=== PATIENT | female | born 1935 | race Caucasian/White ===

== ENCOUNTER 2018-03-11 12:10 | Inpatient (IN) | payer MEDICARE, BC ==
[2018-03-11] MEDS ORDERED: Ibuprofen 200 MG TAB PO PRN (16:07)
[2018-03-11] MEDS: Ferrous Sulfate 325 MG TAB PO SCH (17:23)
[2018-03-11] MEDS: HYDROcodone/Acetaminophen 5/325 mg Tablet PO PRN (17:24)
[2018-03-11] MEDS: Senokot 8.6 MG TAB PO SCH (22:35)
[2018-03-11] MEDS: Ascorbic Acid 500 mg Chewable Tablet PO SCH (22:35)
[2018-03-11] MEDS: RANITIDINE 150 MG PO SCH (22:35)
[2018-03-11] MEDS: traMADol HCl 50 MG TAB PO PRN (22:35)
[2018-03-12 01:55] LABS: Bilirubin Negative (Negative); Blood, Urine Trace (Negative); Clarity Clear (Clear); Glucose, Urine (Dipstick) Negative (Negative); Leukocyte Negative (Negative); Nitrite Negative (Negative); Protein, Urine (Dipstick) Negative (Neg-Trace); Specific Gravity, Urine 1.015 (1.005-1.030); Urobilinogen 0.2 mg/dL (0.2-1.0); pH, Urine 7.5 (5.0-9.0)
[2018-03-12 02:03] LABS: Squamous Epithelial 0-3 HPF (0-3); Transitional Epithelial 0-3 HPF (0-3); WBC/HPF 0-3 HPF (0-3)
[2018-03-12] MEDS: HYDROcodone/Acetaminophen 5/325 mg Tablet PO PRN ×3 (02:13→20:34)
[2018-03-12 05:27] LABS: Hemoglobin 9.4 g/dL (12.0-16.0); Platelet Count 172 thou/uL (130-400)
[2018-03-12] MEDS: RANITIDINE 150 MG PO SCH ×2 (08:43→20:33)
[2018-03-12] MEDS: Ascorbic Acid 500 mg Chewable Tablet PO SCH ×2 (08:44→20:33)
[2018-03-12] MEDS: Multivit, Therapeutic 1 TAB PO SCH (08:47)
[2018-03-12] MEDS: Senokot 8.6 MG TAB PO SCH ×2 (08:48→20:34)
[2018-03-12] MEDS: Ferrous Sulfate 325 MG TAB PO SCH ×2 (08:49→16:58)
[2018-03-12] MEDS: Polyethylene Glycol 3350 17 GM Packet PO SCH (08:49)
[2018-03-12] MEDS: Enoxaparin Sodium 30 MG/0.3 ML SYRINGE SC SCH (08:49)
[2018-03-12] MEDS: traMADol HCl 50 MG TAB PO PRN ×2 (08:53→16:59)
[2018-03-12] MEDS ORDERED: Famotidine 20 MG TAB PO SCH (09:00)
[2018-03-13] MEDS ORDERED: Lactulose 10 GM/15 ML Oral Solution PO PRN (00:28)
[2018-03-13] MEDS ORDERED: Lactulose 10 GM/15 ML Oral Solution ONE (00:37)
[2018-03-13] MEDS: HYDROcodone/Acetaminophen 5/325 mg Tablet PO PRN ×3 (04:29→14:50)
[2018-03-13] MEDS: Ferrous Sulfate 325 MG TAB PO SCH ×2 (09:01→18:01)
[2018-03-13] MEDS: Ascorbic Acid 500 mg Chewable Tablet PO SCH ×2 (09:04→20:47)
[2018-03-13] MEDS: Senokot 8.6 MG TAB PO SCH ×2 (09:05→20:45)
[2018-03-13] MEDS: Multivit, Therapeutic 1 TAB PO SCH (09:06)
[2018-03-13] MEDS: Polyethylene Glycol 3350 17 GM Packet PO SCH (09:06)
[2018-03-13] MEDS: Enoxaparin Sodium 30 MG/0.3 ML SYRINGE SC SCH (09:07)
--- NOTE | 2018-03-13 09:41 | RAD ---
ABDOMEN: Date: 03-13-18 A portable film at 0827 shows a nonspecific gas pattern with gas in large and small bowel. There are no distended loops to suggest obstruction. The amount of fecal material present is minimally increase d but not truly excessive. Various vascular calcifications are noted. Scoliosis is present. IMPRESSION: Nonspecific abdominal findings. POS: HOME
[2018-03-13] MEDS: Proctozone-HC 2.5% Cream 30 GM TUBE TOP SCH (10:22)
[2018-03-13] MEDS: RANITIDINE 150 MG PO SCH ×2 (11:14→20:46)
[2018-03-13] MEDS: traMADol HCl 50 MG TAB PO PRN (18:02)
[2018-03-14 05:43] LABS: Hemoglobin 9.4 g/dL (12.0-16.0); Platelet Count 244 thou/uL (130-400)
[2018-03-14] MEDS: Enoxaparin Sodium 30 MG/0.3 ML SYRINGE SC SCH (09:00)
[2018-03-14] MEDS: Ascorbic Acid 500 mg Chewable Tablet PO SCH ×2 (09:00→20:41)
[2018-03-14] MEDS: Multivit, Therapeutic 1 TAB PO SCH (09:00)
[2018-03-14] MEDS: Ferrous Sulfate 325 MG TAB PO SCH ×2 (09:00→17:08)
[2018-03-14] MEDS: Proctozone-HC 2.5% Cream 30 GM TUBE TOP SCH (09:02)
[2018-03-14] MEDS: Senokot 8.6 MG TAB PO SCH ×2 (09:02→20:41)
[2018-03-14] MEDS: Polyethylene Glycol 3350 17 GM Packet PO SCH (09:02)
[2018-03-14] MEDS: RANITIDINE 150 MG PO SCH ×2 (09:02→20:41)
[2018-03-14] MEDS: HYDROcodone/Acetaminophen 5/325 mg Tablet PO PRN ×2 (09:59→22:52)
[2018-03-14] MEDS: traMADol HCl 50 MG TAB PO PRN (14:00)
[2018-03-15] MEDS: RANITIDINE 150 MG PO SCH ×2 (09:16→20:33)
[2018-03-15] MEDS: Ascorbic Acid 500 mg Chewable Tablet PO SCH ×2 (09:18→20:33)
[2018-03-15] MEDS: Multivit, Therapeutic 1 TAB PO SCH (09:18)
[2018-03-15] MEDS: Enoxaparin Sodium 30 MG/0.3 ML SYRINGE SC SCH (09:19)
[2018-03-15] MEDS: Ferrous Sulfate 325 MG TAB PO SCH ×2 (09:20→17:42)
[2018-03-15] MEDS: Proctozone-HC 2.5% Cream 30 GM TUBE TOP SCH (09:30)
[2018-03-15] MEDS: Polyethylene Glycol 3350 17 GM Packet PO SCH (09:31)
[2018-03-15] MEDS: Senokot 8.6 MG TAB PO SCH ×2 (09:31→20:34)
[2018-03-15] MEDS: traMADol HCl 50 MG TAB PO PRN (09:33)
[2018-03-15] MEDS ORDERED: Aluminum & Magnesium Hydroxide 60 ML, Lidocaine 2% Viscous Solution 30 ML, diphenhydrAM... SSW PRN (16:36)
[2018-03-15] MEDS: HYDROcodone/Acetaminophen 5/325 mg Tablet PO PRN (23:23)
[2018-03-16 05:22] LABS: Platelet Count 243 thou/uL (130-400)
[2018-03-16] MEDS: Enoxaparin Sodium 30 MG/0.3 ML SYRINGE SC SCH (08:54)
[2018-03-16] MEDS: Ascorbic Acid 500 mg Chewable Tablet PO SCH ×2 (08:55→20:25)
[2018-03-16] MEDS: Multivit, Therapeutic 1 TAB PO SCH (08:55)
[2018-03-16] MEDS: Ferrous Sulfate 325 MG TAB PO SCH ×2 (08:56→17:39)
[2018-03-16] MEDS: RANITIDINE 150 MG PO SCH ×2 (08:57→20:27)
[2018-03-16] MEDS: Proctozone-HC 2.5% Cream 30 GM TUBE TOP SCH (08:57)
[2018-03-16] MEDS: Polyethylene Glycol 3350 17 GM Packet PO SCH (08:59)
[2018-03-16] MEDS: Senokot 8.6 MG TAB PO SCH ×2 (09:00→20:28)
[2018-03-16] MEDS: HYDROcodone/Acetaminophen 5/325 mg Tablet PO PRN ×2 (10:45→20:25)
[2018-03-16] MEDS ORDERED: diphenhydrAMINE 12.5 MG/5 ML UDCUP ONE ×2 (13:14→14:45)
[2018-03-16] MEDS ORDERED: MAGNESIUM HYDROXIDE SSW PRN (14:30)
[2018-03-16] MEDS ORDERED: [UNRECOGNIZED DRUG - OTHER] SSW PRN (14:30)
[2018-03-16] MEDS ORDERED: VISCOUS SSW PRN (14:30)
[2018-03-16] MEDS ORDERED: ALUMINUM SSW PRN (14:30)
[2018-03-16] MEDS ORDERED: LIDOCAINE SSW PRN (14:30)
[2018-03-16] MEDS ORDERED: Lidocaine Viscous Sol 2% 15 ml UD Cup ONE (14:45)
[2018-03-16] MEDS ORDERED: Mag-Al Plus 1200 MG/1200 MG/120 MG/30 ML UDCUP ONE (14:45)
[2018-03-16] MEDS: [UNRECOGNIZED DRUG - OTHER] SSW PRN (15:25)
[2018-03-16] MEDS: VISCOUS SSW PRN (15:25)
[2018-03-16] MEDS: LIDOCAINE SSW PRN (15:25)
[2018-03-16] MEDS: AL HYDROX SSW PRN (15:25)
[2018-03-16] MEDS: MAG HYDROX SSW PRN (15:25)
[2018-03-16] MEDS: SIMETH SSW PRN (15:25)
[2018-03-17] MEDS: traMADol HCl 50 MG TAB PO PRN ×2 (04:52→14:54)
[2018-03-17] MEDS ORDERED: Enoxaparin Sodium 30 MG/0.3 ML SYRINGE ONE (07:41)
[2018-03-17] MEDS ORDERED: HYDROcodone/Acetaminophen 5/325 mg Tablet ONE (07:57)
[2018-03-17] MEDS: HYDROcodone/Acetaminophen 5/325 mg Tablet PO PRN ×2 (08:04→22:07)
[2018-03-17] MEDS: Enoxaparin Sodium 30 MG/0.3 ML SYRINGE SC SCH (08:14)
[2018-03-17] MEDS: Proctozone-HC 2.5% Cream 30 GM TUBE TOP SCH (08:15)
[2018-03-17] MEDS: RANITIDINE 150 MG PO SCH ×2 (08:15→21:15)
[2018-03-17] MEDS: Polyethylene Glycol 3350 17 GM Packet PO SCH (08:42)
[2018-03-17] MEDS: Multivit, Therapeutic 1 TAB PO SCH (13:31)
[2018-03-17] MEDS: Senokot 8.6 MG TAB PO SCH ×2 (13:31→21:12)
[2018-03-17] MEDS: Ascorbic Acid 500 mg Chewable Tablet PO SCH ×2 (13:31→21:13)
[2018-03-17] MEDS: Ferrous Sulfate 325 MG TAB PO SCH ×2 (13:31→17:51)
[2018-03-17] MEDS ORDERED: Lidocaine Viscous Sol 2% 15 ml UD Cup ONE (14:54)
[2018-03-17] MEDS: [UNRECOGNIZED DRUG - OTHER] SSW PRN (14:56)
[2018-03-17] MEDS: LIDOCAINE SSW PRN (14:56)
[2018-03-17] MEDS: VISCOUS SSW PRN (14:56)
[2018-03-17] MEDS: AL HYDROX SSW PRN (14:56)
[2018-03-17] MEDS: MAG HYDROX SSW PRN (14:56)
[2018-03-17] MEDS: SIMETH SSW PRN (14:56)
--- NOTE | 2018-03-17 16:29 | RAD ---
LEFT HIP 2 VIEWS: Date: 03/17/18 The sensitivity of the study is low due to a variety of factors, including osteoporosis. No obvious f racture seen. The joint is normal in width. If clinical suspicion of problems is high, a CT or MRI wo uld be more sensitive. IMPRESSION: No acute findings. POS: HOME
[2018-03-18] MEDS: HYDROcodone/Acetaminophen 5/325 mg Tablet PO PRN ×2 (04:18→14:03)
[2018-03-18 05:36] LABS: Hemoglobin 10.1 g/dL (12.0-16.0); Platelet Count 248 thou/uL (130-400)
[2018-03-18] MEDS: Ascorbic Acid 500 mg Chewable Tablet PO SCH ×2 (09:26→21:10)
[2018-03-18] MEDS: Multivit, Therapeutic 1 TAB PO SCH (09:26)
[2018-03-18] MEDS: Ferrous Sulfate 325 MG TAB PO SCH ×2 (09:26→17:18)
[2018-03-18] MEDS: Enoxaparin Sodium 30 MG/0.3 ML SYRINGE SC SCH (09:26)
[2018-03-18] MEDS: RANITIDINE 150 MG PO SCH ×2 (09:28→21:12)
[2018-03-18] MEDS: [UNRECOGNIZED DRUG - OTHER] SSW PRN (09:31)
[2018-03-18] MEDS: SIMETH SSW PRN (09:31)
[2018-03-18] MEDS: LIDOCAINE SSW PRN (09:31)
[2018-03-18] MEDS: MAG HYDROX SSW PRN (09:31)
[2018-03-18] MEDS: VISCOUS SSW PRN (09:31)
[2018-03-18] MEDS: AL HYDROX SSW PRN (09:31)
[2018-03-18] MEDS: Proctozone-HC 2.5% Cream 30 GM TUBE TOP SCH (10:07)
[2018-03-18] MEDS: Polyethylene Glycol 3350 17 GM Packet PO SCH (10:08)
[2018-03-18] MEDS: Senokot 8.6 MG TAB PO SCH ×2 (10:08→21:12)
[2018-03-18] MEDS: traMADol HCl 50 MG TAB PO PRN ×2 (10:38→18:55)
[2018-03-19] MEDS: HYDROcodone/Acetaminophen 5/325 mg Tablet PO PRN ×3 (05:00→23:01)
[2018-03-19] MEDS: Ascorbic Acid 500 mg Chewable Tablet PO SCH ×2 (09:43→20:33)
[2018-03-19] MEDS: Enoxaparin Sodium 30 MG/0.3 ML SYRINGE SC SCH (09:45)
[2018-03-19] MEDS: Multivit, Therapeutic 1 TAB PO SCH (09:45)
[2018-03-19] MEDS: Ferrous Sulfate 325 MG TAB PO SCH ×2 (09:45→17:06)
[2018-03-19] MEDS: Polyethylene Glycol 3350 17 GM Packet PO SCH (09:46)
[2018-03-19] MEDS: Senokot 8.6 MG TAB PO SCH (09:46)
[2018-03-19] MEDS: Proctozone-HC 2.5% Cream 30 GM TUBE TOP SCH (09:46)
[2018-03-19] MEDS: RANITIDINE 150 MG PO SCH ×2 (09:54→20:33)
[2018-03-19] MEDS: [UNRECOGNIZED DRUG - OTHER] SSW PRN (09:56)
[2018-03-19] MEDS: VISCOUS SSW PRN (09:56)
[2018-03-19] MEDS: AL HYDROX SSW PRN (09:56)
[2018-03-19] MEDS: SIMETH SSW PRN (09:56)
[2018-03-19] MEDS: LIDOCAINE SSW PRN (09:56)
[2018-03-19] MEDS: MAG HYDROX SSW PRN (09:56)
[2018-03-20 05:55] LABS: Hemoglobin 10.2 g/dL (12.0-16.0); Platelet Count 278 thou/uL (130-400)
[2018-03-20] MEDS: Polyethylene Glycol 3350 17 GM Packet PO SCH (11:43)
[2018-03-20] MEDS: Enoxaparin Sodium 30 MG/0.3 ML SYRINGE SC SCH (11:44)
[2018-03-20] MEDS: Multivit, Therapeutic 1 TAB PO SCH (11:44)
[2018-03-20] MEDS: Ascorbic Acid 500 mg Chewable Tablet PO SCH ×2 (11:44→21:25)
[2018-03-20] MEDS: Ferrous Sulfate 325 MG TAB PO SCH ×2 (11:44→17:23)
[2018-03-20] MEDS: Proctozone-HC 2.5% Cream 30 GM TUBE TOP SCH (11:45)
[2018-03-20] MEDS: RANITIDINE 150 MG PO SCH ×2 (11:48→21:24)
[2018-03-20] MEDS: HYDROcodone/Acetaminophen 5/325 mg Tablet PO PRN ×2 (11:52→21:25)
[2018-03-20] MEDS: VISCOUS SSW PRN (21:58)
[2018-03-20] MEDS: MAG HYDROX SSW PRN (21:58)
[2018-03-20] MEDS: [UNRECOGNIZED DRUG - OTHER] SSW PRN (21:58)
[2018-03-20] MEDS: LIDOCAINE SSW PRN (21:58)
[2018-03-20] MEDS: AL HYDROX SSW PRN (21:58)
[2018-03-20] MEDS: SIMETH SSW PRN (21:58)
[2018-03-21] MEDS: Enoxaparin Sodium 30 MG/0.3 ML SYRINGE SC SCH (09:14)
[2018-03-21] MEDS: Polyethylene Glycol 3350 17 GM Packet PO SCH ×2 (09:15→10:27)
[2018-03-21] MEDS: Ferrous Sulfate 325 MG TAB PO SCH ×2 (09:15→17:25)
[2018-03-21] MEDS: Ascorbic Acid 500 mg Chewable Tablet PO SCH ×2 (09:16→21:47)
[2018-03-21] MEDS: Proctozone-HC 2.5% Cream 30 GM TUBE TOP SCH (09:16)
[2018-03-21] MEDS: Multivit, Therapeutic 1 TAB PO SCH (09:16)
[2018-03-21] MEDS: RANITIDINE 150 MG PO SCH ×2 (09:16→21:47)
[2018-03-21] MEDS: HYDROcodone/Acetaminophen 5/325 mg Tablet PO PRN (10:25)
[2018-03-22] MEDS: RANITIDINE 150 MG PO SCH ×2 (09:35→21:07)
[2018-03-22] MEDS: Proctozone-HC 2.5% Cream 30 GM TUBE TOP SCH (09:36)
[2018-03-22] MEDS: Multivit, Therapeutic 1 TAB PO SCH (09:36)
[2018-03-22] MEDS: Ferrous Sulfate 325 MG TAB PO SCH ×2 (09:36→17:31)
[2018-03-22] MEDS: Ascorbic Acid 500 mg Chewable Tablet PO SCH ×2 (09:36→21:07)
[2018-03-22] MEDS: Polyethylene Glycol 3350 17 GM Packet PO SCH (09:37)
[2018-03-23] MEDS: Multivit, Therapeutic 1 TAB PO SCH (09:36)
[2018-03-23] MEDS: Ascorbic Acid 500 mg Chewable Tablet PO SCH ×2 (09:36→21:56)
[2018-03-23] MEDS: Proctozone-HC 2.5% Cream 30 GM TUBE TOP SCH (09:36)
[2018-03-23] MEDS: Ferrous Sulfate 325 MG TAB PO SCH ×2 (09:36→18:19)
[2018-03-23] MEDS: Polyethylene Glycol 3350 17 GM Packet PO SCH (09:36)
[2018-03-23] MEDS: RANITIDINE 150 MG PO SCH ×2 (09:38→21:57)
[2018-03-23] MEDS: [UNRECOGNIZED DRUG - OTHER] SSW PRN (09:43)
[2018-03-23] MEDS: VISCOUS SSW PRN (09:43)
[2018-03-23] MEDS: SIMETH SSW PRN (09:43)
[2018-03-23] MEDS: LIDOCAINE SSW PRN (09:43)
[2018-03-23] MEDS: MAG HYDROX SSW PRN (09:43)
[2018-03-23] MEDS: AL HYDROX SSW PRN (09:43)
[2018-03-23] MEDS ORDERED: Ondansetron ODT 4 MG TAB PO PRN (13:25)
[2018-03-24] MEDS: HYDROcodone/Acetaminophen 5/325 mg Tablet PO PRN (09:51)
[2018-03-24] MEDS: Polyethylene Glycol 3350 17 GM Packet PO SCH (09:51)
[2018-03-24] MEDS: Ascorbic Acid 500 mg Chewable Tablet PO SCH ×2 (09:52→21:07)
[2018-03-24] MEDS: Ferrous Sulfate 325 MG TAB PO SCH ×2 (09:52→17:28)
[2018-03-24] MEDS: Multivit, Therapeutic 1 TAB PO SCH (09:52)
[2018-03-24] MEDS: Proctozone-HC 2.5% Cream 30 GM TUBE TOP SCH (09:53)
[2018-03-24] MEDS: RANITIDINE 150 MG PO SCH ×2 (09:53→21:07)
[2018-03-25] MEDS: Polyethylene Glycol 3350 17 GM Packet PO SCH ×2 (08:47)
[2018-03-25] MEDS: Ascorbic Acid 500 mg Chewable Tablet PO SCH ×2 (08:50→20:30)
[2018-03-25] MEDS: Ferrous Sulfate 325 MG TAB PO SCH ×2 (08:50→19:34)
[2018-03-25] MEDS: RANITIDINE 150 MG PO SCH ×2 (08:50→20:30)
[2018-03-25] MEDS: Multivit, Therapeutic 1 TAB PO SCH (08:50)
[2018-03-25] MEDS: Proctozone-HC 2.5% Cream 30 GM TUBE TOP SCH (10:08)
[2018-03-25] MEDS: HYDROcodone/Acetaminophen 5/325 mg Tablet PO PRN (20:30)
[2018-03-26] MEDS: Proctozone-HC 2.5% Cream 30 GM TUBE TOP SCH (09:30)
[2018-03-26] MEDS: Ascorbic Acid 500 mg Chewable Tablet PO SCH ×2 (09:35→20:28)
[2018-03-26] MEDS: Multivit, Therapeutic 1 TAB PO SCH (09:35)
[2018-03-26] MEDS: RANITIDINE 150 MG PO SCH ×2 (09:35→20:27)
[2018-03-26] MEDS: Ferrous Sulfate 325 MG TAB PO SCH ×2 (09:36→17:25)
[2018-03-26] MEDS: Polyethylene Glycol 3350 17 GM Packet PO SCH (09:36)
[2018-03-26] MEDS: HYDROcodone/Acetaminophen 5/325 mg Tablet PO PRN (10:21)
[2018-03-27] MEDS: traMADol HCl 50 MG TAB PO PRN (00:25)
[2018-03-27] MEDS: RANITIDINE 150 MG PO SCH ×2 (08:32→20:16)
[2018-03-27] MEDS: Ascorbic Acid 500 mg Chewable Tablet PO SCH ×2 (08:33→20:16)
[2018-03-27] MEDS: Multivit, Therapeutic 1 TAB PO SCH (08:33)
[2018-03-27] MEDS: Ferrous Sulfate 325 MG TAB PO SCH ×2 (08:33→17:48)
[2018-03-27] MEDS: Polyethylene Glycol 3350 17 GM Packet PO SCH (08:34)
[2018-03-27] MEDS: Proctozone-HC 2.5% Cream 30 GM TUBE TOP SCH (08:34)
[2018-03-27] MEDS: HYDROcodone/Acetaminophen 5/325 mg Tablet PO PRN (10:07)
[2018-03-28] MEDS: Ferrous Sulfate 325 MG TAB PO SCH ×2 (08:40→17:23)
[2018-03-28] MEDS: Multivit, Therapeutic 1 TAB PO SCH (08:40)
[2018-03-28] MEDS: Ascorbic Acid 500 mg Chewable Tablet PO SCH ×2 (08:40→20:46)
[2018-03-28] MEDS: Polyethylene Glycol 3350 17 GM Packet PO SCH (08:41)
[2018-03-28] MEDS: RANITIDINE 150 MG PO SCH ×2 (08:45→20:45)
[2018-03-28] MEDS: Proctozone-HC 2.5% Cream 30 GM TUBE TOP SCH (08:45)
[2018-03-28] MEDS: traMADol HCl 50 MG TAB PO PRN (10:54)
[2018-03-29] MEDS: RANITIDINE 150 MG PO SCH ×2 (08:39→20:23)
[2018-03-29] MEDS: Polyethylene Glycol 3350 17 GM Packet PO SCH (08:40)
[2018-03-29] MEDS: Ascorbic Acid 500 mg Chewable Tablet PO SCH ×2 (08:40→20:23)
[2018-03-29] MEDS: Multivit, Therapeutic 1 TAB PO SCH (08:40)
[2018-03-29] MEDS: Ferrous Sulfate 325 MG TAB PO SCH ×2 (08:45→17:18)
[2018-03-29] MEDS: Proctozone-HC 2.5% Cream 30 GM TUBE TOP SCH (08:47)
[2018-03-29] MEDS: traMADol HCl 50 MG TAB PO PRN (22:26)
[2018-03-30] MEDS: Multivit, Therapeutic 1 TAB PO SCH (08:39)
[2018-03-30] MEDS: Ferrous Sulfate 325 MG TAB PO SCH ×2 (08:40→17:09)
[2018-03-30] MEDS: Ascorbic Acid 500 mg Chewable Tablet PO SCH ×2 (08:41→20:44)
[2018-03-30] MEDS: RANITIDINE 150 MG PO SCH ×2 (08:42→20:46)
[2018-03-30] MEDS: LIDOCAINE SSW PRN (08:43)
[2018-03-30] MEDS: SIMETH SSW PRN (08:43)
[2018-03-30] MEDS: MAG HYDROX SSW PRN (08:43)
[2018-03-30] MEDS: VISCOUS SSW PRN (08:43)
[2018-03-30] MEDS: AL HYDROX SSW PRN (08:43)
[2018-03-30] MEDS: [UNRECOGNIZED DRUG - OTHER] SSW PRN (08:43)
[2018-03-30] MEDS: Proctozone-HC 2.5% Cream 30 GM TUBE TOP SCH (08:45)
[2018-03-30] MEDS: Polyethylene Glycol 3350 17 GM Packet PO SCH (08:45)
[2018-03-31] MEDS: Ascorbic Acid 500 mg Chewable Tablet PO SCH ×2 (08:24→20:19)
[2018-03-31] MEDS: Multivit, Therapeutic 1 TAB PO SCH (08:24)
[2018-03-31] MEDS: Ferrous Sulfate 325 MG TAB PO SCH ×2 (08:24→17:00)
[2018-03-31] MEDS: RANITIDINE 150 MG PO SCH ×2 (08:24→20:19)
[2018-03-31] MEDS: Proctozone-HC 2.5% Cream 30 GM TUBE TOP SCH (08:25)
[2018-03-31] MEDS: Polyethylene Glycol 3350 17 GM Packet PO SCH (08:25)
[2018-03-31] MEDS: traMADol HCl 50 MG TAB PO PRN (09:26)
[2018-04-01] MEDS: Ascorbic Acid 500 mg Chewable Tablet PO SCH ×2 (08:57→20:40)
[2018-04-01] MEDS: Ferrous Sulfate 325 MG TAB PO SCH ×2 (08:57→16:49)
[2018-04-01] MEDS: Multivit, Therapeutic 1 TAB PO SCH (08:58)
[2018-04-01] MEDS: Proctozone-HC 2.5% Cream 30 GM TUBE TOP SCH (08:58)
[2018-04-01] MEDS: RANITIDINE 150 MG PO SCH ×2 (08:58→20:41)
[2018-04-01] MEDS: Polyethylene Glycol 3350 17 GM Packet PO SCH (08:59)
[2018-04-02] MEDS: RANITIDINE 150 MG PO SCH ×2 (08:41→20:23)
[2018-04-02] MEDS: Polyethylene Glycol 3350 17 GM Packet PO SCH (08:42)
[2018-04-02] MEDS: Ferrous Sulfate 325 MG TAB PO SCH ×2 (08:43→17:49)
[2018-04-02] MEDS: Ascorbic Acid 500 mg Chewable Tablet PO SCH ×2 (08:43→20:23)
[2018-04-02] MEDS: Proctozone-HC 2.5% Cream 30 GM TUBE TOP SCH (08:43)
[2018-04-02] MEDS: Multivit, Therapeutic 1 TAB PO SCH (08:43)
[2018-04-02] MEDS: HYDROcodone/Acetaminophen 5/325 mg Tablet PO PRN (08:50)
[2018-04-03] MEDS: Ferrous Sulfate 325 MG TAB PO SCH ×2 (08:46→16:55)
[2018-04-03] MEDS: Multivit, Therapeutic 1 TAB PO SCH (08:46)
[2018-04-03] MEDS: RANITIDINE 150 MG PO SCH ×2 (08:46→21:41)
[2018-04-03] MEDS: Ascorbic Acid 500 mg Chewable Tablet PO SCH ×2 (08:46→21:41)
[2018-04-03] MEDS: Proctozone-HC 2.5% Cream 30 GM TUBE TOP SCH (08:47)
[2018-04-03] MEDS: Polyethylene Glycol 3350 17 GM Packet PO SCH (08:47)
[2018-04-04] MEDS: RANITIDINE 150 MG PO SCH ×2 (08:56→21:50)
[2018-04-04] MEDS: Ferrous Sulfate 325 MG TAB PO SCH ×2 (08:58→17:38)
[2018-04-04] MEDS: Ascorbic Acid 500 mg Chewable Tablet PO SCH ×2 (08:58→21:49)
[2018-04-04] MEDS: Multivit, Therapeutic 1 TAB PO SCH (08:58)
[2018-04-04] MEDS: Polyethylene Glycol 3350 17 GM Packet PO SCH (08:59)
[2018-04-04] MEDS: Proctozone-HC 2.5% Cream 30 GM TUBE TOP SCH (09:00)
[2018-04-05] MEDS: HYDROcodone/Acetaminophen 5/325 mg Tablet PO PRN (01:34)
[2018-04-05] MEDS: Polyethylene Glycol 3350 17 GM Packet PO SCH (08:53)
[2018-04-05] MEDS: Multivit, Therapeutic 1 TAB PO SCH (08:54)
[2018-04-05] MEDS: Ascorbic Acid 500 mg Chewable Tablet PO SCH ×2 (08:54→20:51)
[2018-04-05] MEDS: RANITIDINE 150 MG PO SCH ×2 (08:55→20:52)
[2018-04-05] MEDS: Ferrous Sulfate 325 MG TAB PO SCH ×2 (08:56→16:46)
[2018-04-05] MEDS: Proctozone-HC 2.5% Cream 30 GM TUBE TOP SCH (08:56)
[2018-04-06] MEDS: Ferrous Sulfate 325 MG TAB PO SCH ×2 (08:28→17:18)
[2018-04-06] MEDS: Ascorbic Acid 500 mg Chewable Tablet PO SCH ×2 (09:19→21:50)
[2018-04-06] MEDS: Proctozone-HC 2.5% Cream 30 GM TUBE TOP SCH (09:19)
[2018-04-06] MEDS: Multivit, Therapeutic 1 TAB PO SCH (09:19)
[2018-04-06] MEDS: Polyethylene Glycol 3350 17 GM Packet PO SCH (09:20)
[2018-04-06] MEDS: RANITIDINE 150 MG PO SCH ×2 (09:21→21:50)
[2018-04-07] MEDS ORDERED: Polyethylene Glycol 3350 17 GM Packet PO PRN (07:46)
[2018-04-07] MEDS: Multivit, Therapeutic 1 TAB PO SCH (08:48)
[2018-04-07] MEDS: Ferrous Sulfate 325 MG TAB PO SCH ×2 (08:48→17:26)
[2018-04-07] MEDS: Ascorbic Acid 500 mg Chewable Tablet PO SCH ×2 (08:48→22:54)
[2018-04-07] MEDS: Proctozone-HC 2.5% Cream 30 GM TUBE TOP SCH (08:49)
[2018-04-07] MEDS: RANITIDINE 150 MG PO SCH ×2 (08:52→22:54)
[2018-04-08] MEDS: HYDROcodone/Acetaminophen 5/325 mg Tablet PO PRN (03:03)
[2018-04-08] MEDS: Ferrous Sulfate 325 MG TAB PO SCH ×2 (08:59→17:28)
[2018-04-08] MEDS: Multivit, Therapeutic 1 TAB PO SCH (09:00)
[2018-04-08] MEDS: Ascorbic Acid 500 mg Chewable Tablet PO SCH ×2 (09:00→21:17)
[2018-04-08] MEDS: RANITIDINE 150 MG PO SCH ×2 (09:01→21:16)
[2018-04-08] MEDS: Proctozone-HC 2.5% Cream 30 GM TUBE TOP SCH (09:01)
[2018-04-09] MEDS: RANITIDINE 150 MG PO SCH ×2 (08:16→21:52)
[2018-04-09] MEDS: Multivit, Therapeutic 1 TAB PO SCH (08:16)
[2018-04-09] MEDS: Ascorbic Acid 500 mg Chewable Tablet PO SCH ×2 (08:16→21:52)
[2018-04-09] MEDS: Ferrous Sulfate 325 MG TAB PO SCH ×2 (08:16→18:58)
[2018-04-09] MEDS: Proctozone-HC 2.5% Cream 30 GM TUBE TOP SCH (08:19)
[2018-04-10] MEDS: Multivit, Therapeutic 1 TAB PO SCH (08:40)
[2018-04-10] MEDS: RANITIDINE 150 MG PO SCH ×2 (08:40→21:16)
[2018-04-10] MEDS: Ferrous Sulfate 325 MG TAB PO SCH ×2 (08:41→17:20)
[2018-04-10] MEDS: Proctozone-HC 2.5% Cream 30 GM TUBE TOP SCH (08:42)
[2018-04-10] MEDS: Ascorbic Acid 500 mg Chewable Tablet PO SCH ×2 (08:42→21:16)
[2018-04-11] MEDS: Proctozone-HC 2.5% Cream 30 GM TUBE TOP SCH (08:23)
[2018-04-11] MEDS: Multivit, Therapeutic 1 TAB PO SCH (08:24)
[2018-04-11] MEDS: Ascorbic Acid 500 mg Chewable Tablet PO SCH ×2 (08:25→21:12)
[2018-04-11] MEDS: RANITIDINE 150 MG PO SCH ×2 (08:27→21:12)
[2018-04-11] MEDS: Ferrous Sulfate 325 MG TAB PO SCH ×2 (08:27→17:12)
[2018-04-12] MEDS ORDERED: Ondansetron ODT 4 MG TAB ONE (05:17)
[2018-04-12] MEDS: RANITIDINE 150 MG PO SCH ×2 (08:54→20:45)
[2018-04-12] MEDS: Ascorbic Acid 500 mg Chewable Tablet PO SCH ×2 (08:55→20:45)
[2018-04-12] MEDS: Multivit, Therapeutic 1 TAB PO SCH (08:56)
[2018-04-12] MEDS: Ferrous Sulfate 325 MG TAB PO SCH ×2 (08:59→17:47)
[2018-04-12] MEDS: Proctozone-HC 2.5% Cream 30 GM TUBE TOP SCH (09:00)
[2018-04-13] MEDS: RANITIDINE 150 MG PO SCH ×2 (08:36→21:19)
[2018-04-13] MEDS: Ferrous Sulfate 325 MG TAB PO SCH ×2 (08:36→17:18)
[2018-04-13] MEDS: Multivit, Therapeutic 1 TAB PO SCH (08:37)
[2018-04-13] MEDS: Ascorbic Acid 500 mg Chewable Tablet PO SCH ×2 (08:37→21:19)
[2018-04-13] MEDS: Proctozone-HC 2.5% Cream 30 GM TUBE TOP SCH (08:42)
[2018-04-13] MEDS: HYDROcodone/Acetaminophen 5/325 mg Tablet PO PRN (21:50)
[2018-04-14] MEDS: traMADol HCl 50 MG TAB PO PRN (04:06)
[2018-04-14] MEDS: Multivit, Therapeutic 1 TAB PO SCH (08:48)
[2018-04-14] MEDS: Ferrous Sulfate 325 MG TAB PO SCH ×2 (08:49→18:08)
[2018-04-14] MEDS: HYDROcodone/Acetaminophen 5/325 mg Tablet PO PRN (08:49)
[2018-04-14] MEDS: Ascorbic Acid 500 mg Chewable Tablet PO SCH ×2 (08:49→20:40)
[2018-04-14] MEDS: Proctozone-HC 2.5% Cream 30 GM TUBE TOP SCH (08:50)
[2018-04-14] MEDS: RANITIDINE 150 MG PO SCH ×2 (08:50→20:40)
[2018-04-15] MEDS: RANITIDINE 150 MG PO SCH ×2 (08:24→21:14)
[2018-04-15] MEDS: Ferrous Sulfate 325 MG TAB PO SCH ×2 (08:24→16:44)
[2018-04-15] MEDS: Multivit, Therapeutic 1 TAB PO SCH (08:24)
[2018-04-15] MEDS: Proctozone-HC 2.5% Cream 30 GM TUBE TOP SCH (08:24)
[2018-04-15] MEDS: Ascorbic Acid 500 mg Chewable Tablet PO SCH ×2 (08:24→21:14)
[2018-04-15] MEDS: HYDROcodone/Acetaminophen 5/325 mg Tablet PO PRN (11:34)
[2018-04-16] MEDS: Multivit, Therapeutic 1 TAB PO SCH (08:47)
[2018-04-16] MEDS: Ascorbic Acid 500 mg Chewable Tablet PO SCH ×2 (08:47→21:04)
[2018-04-16] MEDS: Ferrous Sulfate 325 MG TAB PO SCH (08:47)
[2018-04-16] MEDS: RANITIDINE 150 MG PO SCH ×2 (08:50→21:04)
[2018-04-16] MEDS: HYDROcodone/Acetaminophen 5/325 mg Tablet PO PRN (08:56)
[2018-04-16] MEDS: Proctozone-HC 2.5% Cream 30 GM TUBE TOP SCH (09:00)
[2018-04-16] MEDS: traMADol HCl 50 MG TAB PO PRN (11:30)
[2018-04-17] MEDS: HYDROcodone/Acetaminophen 5/325 mg Tablet PO PRN (09:14)
[2018-04-17] MEDS: Ferrous Sulfate 325 MG TAB PO SCH ×3 (09:17→17:26)
[2018-04-17] MEDS: Ascorbic Acid 500 mg Chewable Tablet PO SCH ×2 (09:17→20:35)
[2018-04-17] MEDS: Multivit, Therapeutic 1 TAB PO SCH (09:17)
[2018-04-17] MEDS: RANITIDINE 150 MG PO SCH ×2 (09:18→20:35)
[2018-04-17] MEDS: Proctozone-HC 2.5% Cream 30 GM TUBE TOP SCH (09:22)
[2018-04-17] MEDS: traMADol HCl 50 MG TAB PO PRN (14:36)
[2018-04-18] MEDS: Multivit, Therapeutic 1 TAB PO SCH (08:34)
[2018-04-18] MEDS: Ascorbic Acid 500 mg Chewable Tablet PO SCH ×2 (08:34→19:39)
[2018-04-18] MEDS: RANITIDINE 150 MG PO SCH ×2 (08:35→19:39)
[2018-04-18] MEDS: HYDROcodone/Acetaminophen 5/325 mg Tablet PO PRN (08:35)
[2018-04-18] MEDS: Ferrous Sulfate 325 MG TAB PO SCH ×2 (08:36→17:11)
[2018-04-18] MEDS: Proctozone-HC 2.5% Cream 30 GM TUBE TOP SCH (08:39)
[2018-04-19] MEDS: Multivit, Therapeutic 1 TAB PO SCH (09:35)
[2018-04-19] MEDS: Ferrous Sulfate 325 MG TAB PO SCH ×2 (09:35→17:16)
[2018-04-19] MEDS: Proctozone-HC 2.5% Cream 30 GM TUBE TOP SCH (09:35)
[2018-04-19] MEDS: Ascorbic Acid 500 mg Chewable Tablet PO SCH ×2 (09:35→20:13)
[2018-04-19] MEDS: RANITIDINE 150 MG PO SCH ×2 (09:37→20:13)
[2018-04-19] MEDS: HYDROcodone/Acetaminophen 5/325 mg Tablet PO PRN (17:19)
[2018-04-20] MEDS: traMADol HCl 50 MG TAB PO PRN (03:47)
[2018-04-20] MEDS: HYDROcodone/Acetaminophen 5/325 mg Tablet PO PRN ×2 (06:01→20:35)
[2018-04-20] MEDS: RANITIDINE 150 MG PO SCH ×2 (08:26→20:35)
[2018-04-20] MEDS: Ascorbic Acid 500 mg Chewable Tablet PO SCH ×2 (08:26→20:35)
[2018-04-20] MEDS: Proctozone-HC 2.5% Cream 30 GM TUBE TOP SCH (08:26)
[2018-04-20] MEDS: Ferrous Sulfate 325 MG TAB PO SCH ×2 (08:26→17:45)
[2018-04-20] MEDS: Multivit, Therapeutic 1 TAB PO SCH (08:26)
[2018-04-21] MEDS: Ferrous Sulfate 325 MG TAB PO SCH ×2 (08:13→17:52)
[2018-04-21] MEDS: Multivit, Therapeutic 1 TAB PO SCH (08:13)
[2018-04-21] MEDS: Ascorbic Acid 500 mg Chewable Tablet PO SCH ×2 (08:13→20:37)
[2018-04-21] MEDS: Proctozone-HC 2.5% Cream 30 GM TUBE TOP SCH (08:14)
[2018-04-21] MEDS: RANITIDINE 150 MG PO SCH ×2 (08:20→20:37)
[2018-04-21] MEDS: HYDROcodone/Acetaminophen 5/325 mg Tablet PO PRN ×2 (08:27→17:54)
[2018-04-22] MEDS: Ferrous Sulfate 325 MG TAB PO SCH ×2 (09:11→18:03)
[2018-04-22] MEDS: Multivit, Therapeutic 1 TAB PO SCH (09:11)
[2018-04-22] MEDS: Ascorbic Acid 500 mg Chewable Tablet PO SCH ×2 (09:11→21:09)
[2018-04-22] MEDS: HYDROcodone/Acetaminophen 5/325 mg Tablet PO PRN (09:12)
[2018-04-22] MEDS: RANITIDINE 150 MG PO SCH ×2 (09:12→21:09)
[2018-04-22] MEDS: Proctozone-HC 2.5% Cream 30 GM TUBE TOP SCH (09:13)
[2018-04-22 18:06] VITALS: BMI 25.0
[2018-04-23] MEDS: HYDROcodone/Acetaminophen 5/325 mg Tablet PO PRN (08:42)
[2018-04-23] MEDS: Multivit, Therapeutic 1 TAB PO SCH (08:46)
[2018-04-23] MEDS: Ascorbic Acid 500 mg Chewable Tablet PO SCH ×2 (08:46→20:24)
[2018-04-23] MEDS: Ferrous Sulfate 325 MG TAB PO SCH ×2 (08:46→17:12)
[2018-04-23] MEDS: Proctozone-HC 2.5% Cream 30 GM TUBE TOP SCH (08:47)
[2018-04-23] MEDS: RANITIDINE 150 MG PO SCH ×2 (08:48→20:24)
[2018-04-24] MEDS: HYDROcodone/Acetaminophen 5/325 mg Tablet PO PRN (08:23)
[2018-04-24] MEDS: Ascorbic Acid 500 mg Chewable Tablet PO SCH ×2 (08:25→20:36)
[2018-04-24] MEDS: Ferrous Sulfate 325 MG TAB PO SCH ×2 (08:25→17:34)
[2018-04-24] MEDS: RANITIDINE 150 MG PO SCH ×2 (08:25→20:36)
[2018-04-24] MEDS: Multivit, Therapeutic 1 TAB PO SCH (08:25)
[2018-04-24] MEDS: Proctozone-HC 2.5% Cream 30 GM TUBE TOP SCH (08:27)
[2018-04-24] MEDS ORDERED: Lidocaine Viscous Sol 2% 15 ml UD Cup ONE (08:29)
[2018-04-24] MEDS: LIDOCAINE SSW PRN (08:31)
[2018-04-24] MEDS: MAG HYDROX SSW PRN (08:31)
[2018-04-24] MEDS: VISCOUS SSW PRN (08:31)
[2018-04-24] MEDS: SIMETH SSW PRN (08:31)
[2018-04-24] MEDS: [UNRECOGNIZED DRUG - OTHER] SSW PRN (08:31)
[2018-04-24] MEDS: AL HYDROX SSW PRN (08:31)
[2018-04-24] MEDS: traMADol HCl 50 MG TAB PO PRN (15:16)
[2018-04-25 06:14] VITALS: BP 116/53; TEMP 98.2
[2018-04-25] MEDS ORDERED: HYDROcodone/Acetaminophen 5/325 mg Tablet PO PRN (08:00)
[2018-04-25] MEDS: Ferrous Sulfate 325 MG TAB PO SCH (09:00)
[2018-04-25] MEDS: Ascorbic Acid 500 mg Chewable Tablet PO SCH (10:49)
[2018-04-25] MEDS: Proctozone-HC 2.5% Cream 30 GM TUBE TOP SCH (10:50)
[2018-04-25] MEDS: RANITIDINE 150 MG PO SCH (10:51)
--- NOTE | 2018-04-26 01:28 | DIS ---
DATE OF ADMISSION: 03/11/2018 DATE OF DISCHARGE: 04/25/2018 ADMISSION DIAGNOSES: Right femur fracture, status post open reduction and internal fixation, status post bilateral hand surgery. SECONDARY DIAGNOSES: Included constipation, type 2 diabetes mellitus which is diet controlled, hypertension, rheumatoid arthritis, and gastroesophageal reflux disease. PROCEDURES: None other than working with Physical Therapy and Occupational Therapy. HOSPITAL COURSE: 82-year-old female who has most recently been under the care of Dr. Hernandez in [place], transitioned to our facility to participate with physical therapy and occupational therapy. Initially, she was seen and evaluated at [facility] after she had fallen and broken her right femur. Shortly prior to this, the patient has had bilateral hand surgery via which may have contributed to her fall. The patient had open reduction and internal fixation to repair her right femur fracture and discharged to our facility as a swing patient for PT/OT , as she was put under orthopedic restrictions including nonweightbearing status and therefore was unable to return home. The patient had a followup with Dr. Brock during her stay, who was able to have her right upper extremity splint removed to where she could use a splint to the fingers only. She also had a followup appointment with Dr. King who did allow the patient to transition to weightbearing activity. The patient has made steady progress with the therapists and is able to transition home at this point. She has declined both home health and outpatient physical therapy stating that she prefers to perform the rehab exercises at home by herself. Her who has been present throughout, will help keep an eye on her and has advised that they will pursue outpatient physical therapy if she does not progress as expected. A prescription has been written for the patient to obtain a wheelchair to further aid mobility in her home setting. At this point, the patient has met the goals set forth by Physical Therapy and Occupational Therapy and is able to discharge to her home setting. DISPOSITION: The patient will discharge home where she lives with her . She may follow up with myself in the clinic in 1 week. She may further follow up with Dr. King and Dr. Brock as advised. DISCHARGE MEDICATIONS: Include: 1. Ferrous sulfate 325 mg p.o. b.i.d. 2. Aspirin 81 mg p.o. daily. 3. Vitamin C 500 mg p.o. b.i.d. 4. [place] 5/325 q.6 hours p.r.n. 5. Ibuprofen 600 mg p.o. q.6 hours p.r.n. 6. MiraLAX 17 g p.o. daily. 7. Ranitidine 75 mg p.o. b.i.d. 8. Ramipril 2.5 mg p.o. daily. 9. Tramadol 50 mg p.o. q.6 hours p.r.n. 10. Senokot 2 tabs p.o. b.i.d. Job ID: [id number] [facility]
== END 2018-04-25 17:00 | disposition home or self-care (01) | DRG 561 ==
LOC: BURMED 14:25
PROVIDERS: ADMIT Family Medicine; ATTEND Family Medicine
DX: S72.91XD Unspecified fracture of right femur, subsequent encounter for closed fracture with routine healing (principal); K59.00 Constipation, unspecified; E11.9 Type 2 diabetes mellitus without complications; I10 Essential (primary) hypertension; M06.9 Rheumatoid arthritis, unspecified; K21.9 Gastro-esophageal reflux disease without esophagitis; W19.XXXD Unspecified fall, subsequent encounter; Z98.890 Other specified postprocedural states
CPT/HCPCS: 36415; 36416; 74018; 81001; 82565; 85014; 85018; 85049; 87077; 87086; G8987-GO-CM; G8988-GO-CI; G8990-GP-CM; G8991-GP-CJ; J1650; Q0162

== ENCOUNTER 2019-03-09 11:33 | Outpatient (CLI) | payer MEDICARE, BC ==
--- NOTE | 2019-03-09 12:46 | RAD ---
RIGHT FOOT THREE VIEWS: 03/09/2019 FINDINGS: The bones are osteoporotic which could mask subtle injuries. No fracture is evident. Pes planus is pr esent as well as hallux valgus and hammertoe deformities. All bones appear intact. No bony destructiv e lesions are detected. The proximal phalanx of the fifth digit seems foreshortened and there may act ually be an extra phalanx of fragment from an old injury here. IMPRESSION: Chronic changes but no acute findings. POS: HOME
--- NOTE | 2019-03-09 12:49 | RAD ---
RIGHT ANKLE 3 VIEWS: DATE: 03/09/2019. FINDINGS: The bones are quite osteoporotic which could mask some subtle injuries. There is some irregularity o f the medial malleolus, but no bony destruction or definite fracture was detected. The ankle joint is normal in width. There is considerable soft tissue swelling around the ankle. A calcaneal spur is noted. There are some degenerative changes in the intertarsal joints. Arterial calcifications are s een. IMPRESSION: Soft tissue swelling and chronic changes, but no acute bony findings. POS: HOME
== END 2019-03-09 11:34 | disposition home or self-care (01) ==
LOC: BURRAD 11:33
PROVIDERS: ATTEND Family Medicine
DX: M79.672 Pain in left foot (principal); M25.571 Pain in right ankle and joints of right foot; M79.89 Other specified soft tissue disorders

== ENCOUNTER 2019-09-13 20:57 | Emergency (ER) | payer MEDICARE, BC ==
[2019-09-13 21:44] LABS: #Eosinphils 0.4 thou/uL (0.0-0.7); #Lymphocytes 1.3 thou/uL (1.20-3.40); #Monocytes 0.5 thou/uL (0.11-0.59); #Neutrophils 2.6 thou/uL (1.40-6.50); %Basophils 0.8 % (0.0-1.0); %Eosinophils 8.6 % (0.0-10.0); %Lymphocytes 26.3 % (21.0-51.0); %Monocytes 10.5 % (0.0-10.0); %Neutrophils 53.7 % (42.0-75.0); Hemoglobin 12.3 g/dL (12.0-16.0); Mean Corpuscular HGB CONC 31.3 g/dL (32.0-36.0); Mean Corpuscular Volume 95.9 fL (78.0-98.0); Mean Platelet Volume 6.6 fL (7.4-10.4); Platelet Count 161 thou/uL (130-400); RBC Distribution Width 13.6 % (11.5-14.5); Red Blood Cell (RBC) Count 4.08 mill/uL (4.20-5.40); White Blood Cell (WBC) Count 4.8 thou/uL (4.8-10.8)
[2019-09-13 21:52] LABS: ALT (SGPT) 19 U/L (8-55); AST (SGOT) 31 U/L (5-34); Albumin 4.1 g/dL (3.4-4.8); Alkaline Phosphatase 116 U/L (40-110); Anion Gap 15 mmol/L (10-20); BUN (Urea Nitrogen) 20 mg/dL (9.8-20.1); Bilirubin, Total 0.4 mg/dL (0.2-1.2); Calc. Creatinine Clearance 0 mL/min (70-130); Calcium 9.8 mg/dL (7.8-10.44); Carbon Dioxide 25 mmol/L (23-31); Chloride 104 mmol/L (98-107); Estimated GFR-MDRD 59; Globulin 3.4 g/dL (2.4-3.5); Glucose 156 mg/dL (83-110); Potassium 3.6 mmol/L (3.5-5.1); Protein, Total 7.5 g/dL (6.0-8.3); Sodium 140 mmol/L (136-145)
--- NOTE | 2019-09-14 08:32 | RAD ---
PORTABLE UPRIGHT FRONTAL CHEST RADIOGRAPH: DATE: 09/13/2019. HISTORY: Syncope. FINDINGS: There is degenerative change within the left shoulder with an intraarticular loose body inferior to t he left coracoid process. No pneumothorax, pleural fluid, focal consolidation, or alveolar edema. IMPRESSION: No acute findings. POS: [facility]
== END 2019-09-13 22:30 | disposition short-term general hospital (02) ==
LOC: BURERS 20:57
DX: R55 Syncope and collapse (principal); R00.1 Bradycardia, unspecified; K21.9 Gastro-esophageal reflux disease without esophagitis; M06.9 Rheumatoid arthritis, unspecified; I10 Essential (primary) hypertension; E11.9 Type 2 diabetes mellitus without complications; Z79.899 Other long term (current) drug therapy; Z79.82 Long term (current) use of aspirin
CPT/HCPCS: 71045; 80053; 83880; 84484; 85025; 93005

== ENCOUNTER 2020-04-27 10:38 | Outpatient (CLI) | payer MEDICARE ==
--- NOTE | 2020-04-27 16:45 | RAD ---
RIGHT HIP 04/27/20 AP and lateral views are taken and include the entire femur. There has been a prior long stem ORIF of the femoral shaft and replacement of the knee. The hip itself appears intact with no sign of fractur e. The adjacent pubic ring appears intact. There is no sign of loosening around the orthopedic hardwa re. IMPRESSION: No acute findings. POS: HOME
--- NOTE | 2020-04-28 07:15 | RAD ---
LEFT WRIST WITH PA CHEST: 04/27/20 Comparison is made with an 03/06/18 chest film. The heart remains normal in size. The lungs are clear and fully inflated. No effusions or pneumothora x was seen. Regarding the left ribs, no gross fractures were identified, however, due to her osteopen ia, subtle fractures could be easily missed. Severe degenerative changes are present in the left cecilia ohumeral joint. IMPRESSION: No acute findings. POS: HOME
== END 2020-04-27 10:39 | disposition home or self-care (01) ==
LOC: BURRAD 10:38
PROVIDERS: ATTEND Family Medicine
DX: M25.551 Pain in right hip (principal); R07.81 Pleurodynia